=== PATIENT | female | born 2005 | race Two or more races ===

== ENCOUNTER 2025-01-26 13:34 | Emergency (ER) | payer SELFPAY ==
[2025-01-26 13:39] VITALS: BP 113/70; PULSE 98; RESP 15; TEMP 36.2; O2SAT 97; BMI 16.9
--- NOTE | 2025-01-26 13:59 | EDS_ITS ---
HPI History of Present Illness Chief Complaint: Headache Detail of Chief Complaint: Per triage headache x 3 days Narrative Narrative: Patient is not Qatari-speaking. Her [place] language is [place] Creole. The pad for spanish medical interpreter is not functioning right now. Based on documentation triage we will treat with IV ketorolac, Benadryl and Reglan. Will perform complete history and physical once spanish medical interpreter service has been contacted. PFSH PFSH Allergy/AdvReac Type Severity Reaction Status Date / Time No Known Allergies Allergy Verified 01/26/25 13:39 EXAM Physical Exam Const Vital Signs: 01/26/25 13:39 Temperature 97.2 F L Temperature Source Temporal Pulse Rate 98 Respiratory Rate 15 Blood Pressure 113/70 Blood Pressure Mean 84 Pulse Ox 97 Oxygen Delivery Method Room Air Discharge Plan Triage Chief Complaint: Headache ED Provider: Donaldo Dueñas Dx/Rx/DC Orders Primary Care Provider: Care Physician,No Primary Referrals: Care Physician,No Primary [Primary Care Provider, Medical] Print Language: Qatari
--- NOTE | 2025-01-26 13:59 | EX.ED.VIS.HA ---
HPI History of Present Illness Chief Complaint: Headache Detail of Chief Complaint: Per triage headache x 3 days Informant: patient Onset/Context/Timing Onset: Days (2 days ago) Context: Gradual Timing: Continuous and Waxes and wanes Quality -Headache: Positive for Similar Prior Headaches and Dull Location: left side Current Severity: Moderate Maximum Severity: Severe Worsened by: Photophobia and sonophobia Relieved by: Nothing Associated Symptoms/Injury Associated Symptoms: Positive for Nausea and Photophobia; Negative for Fever, Vomiting, Sore Throat, Sinus Pressure, Numbness, Tingling, Preceding Aura, Visual Changes, Blurred Vision or Visual Loss Injury - FARIA: Negative for Direct Trauma Narrative Narrative: Patient is not Indian-speaking. Her [place] language is [place] Creole. The pad for gravity meter observer is not functioning right now. Based on documentation triage we will treat with IV ketorolac, Benadryl and Reglan. Will perform complete history and physical once gravity meter observer service has been contacted. With use of gravity meter observer service determine the patient history migraines. There is unilateral headache. She has photophobia and sonophobia. Last menses is now. She has no signs or symptoms of . Prior similar symptoms: Yes Recent Illness/Hospitalization: No PFSH PFSH Medical History (Updated 01/26/25 @ 15:[address] Donaldo Dueñas MD) Migraine aura without headache Medical History no medical history Allergy/AdvReac Type Severity Reaction Status Date / Time No Known Allergies Allergy Verified 01/26/25 13:39 Family History no significant family his Surgical History no surgical history Social History Smoking Status: Never smoker ROS ROS ED Constitutional Constitutional ED: Denies chills, fever(s), subjective, sweats or weight loss Eyes Eyes: Denies blurry vision, change in vision or diplopia ENT ENT ED: Denies ear pain, rhinorrhea or sore throat Cardiovascular Cardiovascular: Denies chest pain or palpitations Respiratory/Chest Respiratory/Chest: Denies cough, dyspnea or dyspnea on exertion Gastrointestinal Gastrointestinal: Denies diarrhea or vomiting Genitourinary Genitourinary ED: Denies dysuria, hematuria or urinary frequency Musculoskeletal Musculoskeletal: Denies arthralgias or myalgias Integumentary Denies rash Neurologic Neurologic: Reports headache(s); Denies paresthesias or weakness Psychiatric Psychiatric: Denies anxiety or depression Hematologic/Lymphatic Hematologic/Lymphatic: Denies easy bleeding or easy bruising EXAM Physical Exam Const Vital Signs: 01/26/25 13:39 Temperature 97.2 F L Temperature Source Temporal Pulse Rate 98 Respiratory Rate 15 Blood Pressure 113/70 Blood Pressure Mean 84 Pulse Ox 97 Oxygen Delivery Method Room Air Positive well nourished and well developed General Appearance ED: well developed and NAD; Negative for cyanotic, diaphoretic or pallor HEENT Reports normocephalic, TM's clear and moist mucous membranes atraumatic Face and Sinus: Negative for sinus tenderness Tympanic Membrane ED: Yes TM's clear Eyes PERRL and EOMs intact bilaterally Eyes Narrative: There is no nystagmus. General Eye ED: Negative for pale conjunctiva or scleral icterus Neck no lymphadenopathy, supple, no meningeal signs and no JVD Resp normal respiratory effort and clear to auscultation bilaterally Cardio regular rate, regular rhythm, S1 normal heart sound, S2 normal heart sound and no murmurs Extremity normal to inspection and full ROM Neuro oriented x3, CN's II-XII intact bilaterally and no sensory deficits noted Neuro Narrative: There is no clonus Babinski sign noted right or left. There is no dysmetria. Sensorium / Orientation: awake and alert Speech: speech normal Gait (Neuro): normal gait Motor Exam: strength 5/5 throughout Psych mental status grossly normal Skin General Skin Exam: elasticity normal and turgor normal; Negative for jaundice or pallor Lesions: no lesions Rashes: no rashes MDM MDM MDM Narrative Medical decision making narrative: Patient was treated with IV ketorolac, Reglan and Benadryl. Did use gravity meter observer service. Total time with gravity meter observer 13 minutes. Treatment and Re-Evaluation Narrative: Patient is asking for something to eat. Someone brought her pizza. Her headache is improved significantly. Will discharge to home. Discharge Plan Triage Chief Complaint: Headache ED Provider: Donaldo Dueñas Dx/Rx/DC Orders Clinical Impression: Headache, chronic migraine without aura, intractable Instructions: ED, Migraine (Classical) Primary Care Provider: Care Physician,No Primary Referrals: Care Physician,No Primary [Primary Care Provider, Medical] Katya Barry, [facility] - 5-7 Days Activity Restrictions/Additional Instructions: Recommend following up with the [facility] for medication to prevent you from getting migraine headaches Print Language: Indian Disposition Disposition: Home, Self Care
[2025-01-26] MEDS: DiphenhydrAMINE 50 MG/ML Syringe 25 MG IV (14:21)
[2025-01-26 15:36] VITALS: BP 130/79; PULSE 76; RESP 16; O2SAT 100
[2025-01-26 16:10] VITALS: BP 130/79; PULSE 76; RESP 16; TEMP 36.6; O2SAT 100
== END 2025-01-26 16:11 | disposition home or self-care (01) ==
PROVIDERS: Emergency Provider Emergency Medicine; Visit Provider Emergency Medicine
DX: G43.719 Chronic migraine without aura, intractable, without status migrainosus (principal)
CPT/HCPCS: 96374; 96375; 99284; A4216